=== PATIENT | male | born 1950 | race Caucasian/White ===

== ENCOUNTER 2016-10-15 14:49 | Inpatient (IN) | payer MEDICARE, BC ==
[~2016-10-15] VITALS: Ht 167.6 cm; Wt 63.6 kg
[2016-10-15] MEDS ORDERED: SODIUM CHLORIDE FLUSH 10ML SYR IVF ONE (15:00)
[2016-10-15] MEDS ORDERED: KETOROLAC 30 MG/1 ML ONE (15:08)
[2016-10-15] MEDS ORDERED: KETOROLAC 30 MG/1 ML IVPush ONE (15:30)
[2016-10-15] MEDS ORDERED: PLEASE ENTER ALLERGIES MC SCH ×2 (15:30)
[2016-10-15] MEDS ORDERED: PLEASE ENTER HEIGHT AND WEIGHT MC SCH (15:30)
[2016-10-15 15:41] LABS: IS PT STATUS REG ER OR PRE ER? YES
[2016-10-15] MEDS ORDERED: BUPR150T73 PO (15:59)
[2016-10-15] MEDS ORDERED: ASPI-496 PO (15:59)
[2016-10-15] MEDS ORDERED: TADA5TAB2 PO (15:59)
[2016-10-15] MEDS ORDERED: OMEP-110 PO (15:59)
[2016-10-15] MEDS ORDERED: ROSU5TAB PO (15:59)
[2016-10-15] MEDS ORDERED: LORazepam 0.5MG TABLET PO PRN (16:30)
[2016-10-15] MEDS ORDERED: CALCIUM CARBONATE 500 MG TAB.CHEW PO PRN (16:30)
[2016-10-15] MEDS ORDERED: ENOXAPARIN 40 MG/0.4 ML SQ SCH (16:30)
[2016-10-15] MEDS ORDERED: MAALOX/HYOSCYAMINE/LIDOCAINE 45 ML BOTTLE PO PRN (16:30)
[2016-10-15] MEDS ORDERED: MAALOX/HYOSCYAMINE/LIDOCAINE 45 ML BOTTLE PO ONE (16:30)
[2016-10-15] MEDS ORDERED: ONDANSETRON 2MG/ML, 2ML IVP PRN (16:30)
[2016-10-15] MEDS ORDERED: ZOLPIDEM 5MG TABLET PO PRN (16:30)
[2016-10-15] MEDS ORDERED: morphine SULFATE 10 MG/ML, 1ML IV PRN (16:30)
[2016-10-15] MEDS ORDERED: ACETAMINOPHEN 650 MG/20.3 ML UDC PO PRN (16:30)
[2016-10-15] MEDS ORDERED: KETOROLAC 30 MG/1 ML IVPush PRN (16:30)
[2016-10-15 16:59] VITALS: BP 121/84
[2016-10-15 20:59] LABS: IS PT STATUS REG ER OR PRE ER? NO
[2016-10-15] MEDS ORDERED: TEMPLATE NON-FORMULARY MED. (Rosuvastatin Calcium** (Crestor**) 5 MG) PO SCH (21:00)
[2016-10-15 21:06] VITALS: BP 109/69
[2016-10-15] MEDS: BUPROPION SR 150 MG TABLET PO SCH (21:55)
[2016-10-15] MEDS: SODIUM CHLORIDE FLUSH 10ML SYR IVF SCH (21:57)
[2016-10-16 01:56] VITALS: BP 118/72
[2016-10-16] MEDS ORDERED: ASPIRIN 325 MG TABLET PO SCH (06:00)
[2016-10-16 06:23] LABS: BLOOD UREA NITROGEN 22 mg/dL (7-18)
[2016-10-16 06:28] LABS: ASPARTATE AMINO TRANSFERASE 17 U/L (15-37)
[2016-10-16] MEDS ORDERED: PANTOPROZOLE 40MG TABLET PO SCH (07:30)
[2016-10-16 08:00] VITALS: BP 111/73
[2016-10-16] MEDS: SODIUM CHLORIDE FLUSH 10ML SYR IVF SCH (08:17)
[2016-10-16] MEDS: BUPROPION SR 150 MG TABLET PO SCH (08:17)
[2016-10-16] MEDS ORDERED: CALC200T24 PO (15:05)
[2016-10-16] MEDS ORDERED: PANT40TA5 PO (15:05)
[2016-10-16] MEDS ORDERED: ZOLP-413 PO (15:05)
[2016-10-16] MEDS ORDERED: LORA-445 PO (15:05)
[2016-10-16 15:30] VITALS: BP 130/81
== END 2016-10-16 16:20 | disposition home or self-care (01) | DRG 392 ==
LOC: ED 15:25 → EDIP 15:28 → ED 15:42 → 5SO 16:44
PROVIDERS: ADMIT Internal Medicine; ATTEND Internal Medicine
DX: K21.9 Gastro-esophageal reflux disease without esophagitis (principal); R07.9 Chest pain, unspecified; F41.1 Generalized anxiety disorder; E78.00 Pure hypercholesterolemia, unspecified; E78.5 Hyperlipidemia, unspecified; G47.9 Sleep disorder, unspecified; Z79.82 Long term (current) use of aspirin; Z79.899 Other long term (current) drug therapy; Z82.49 Family history of ischemic heart disease and other diseases of the circulatory system; Z85.46 Personal history of malignant neoplasm of prostate; Z90.79 Acquired absence of other genital organ(s)
CPT/HCPCS: 36415; 78452; 80053; 80061; 83735; 84443; 84484; 85025; 93005; 93017; 93306; 96374; J1885; A9502; C9898